=== PATIENT | female | born 2000 | race Two or more races ===

== ENCOUNTER 2024-02-21 10:08 | Emergency (ER) | payer OTHER, SELFPAY ==
[2024-02-21 10:37] VITALS: BP 115/70; PULSE 51; RESP 14; TEMP 36.8; O2SAT 100; BMI 33.8
[2024-02-21 14:01] VITALS: BP 127/46; PULSE 78; RESP 16; TEMP 36.9; O2SAT 100
--- NOTE | 2024-02-21 14:01 | ED.GENADULT ---
HPI - General Adult General Chief complaint: Abdominal Pain Stated complaint: migraine sweating not sleeping Source: patient Mode of arrival: ambulatory Limitations: no limitations History of Present Illness ED Provider: Liya Barrientos PA-C HPI narrative: Patient is a 23 year old assigned female at with a history of chronic abdominal pain and IBS presenting to the emergency department today with continued abdominal pain. Patient states that she has been having abdominal pain for months that isn't getting better as well as diarrhea. Patient states that every time her appointment with a GI specialist would get close, she'd cancel it because she was feeling better. Patient denies any dizziness, lightheadedness, nausea, vomiting, fever, chills, blurry vision, double vision, loss of vision, chest pain, difficulty breathing, shortness of breath, back pain, night sweats, pain with urination, increased urinary frequency, increased urinary urgency, blood in her urine or stool, syncope or a near syncopal episode, recent trauma or falls, bowel incontinence, bladder incontinence, or any other complaints at this time. Onset (ago): month(s) Location: abdomen Radiation: non-radiation Severity: mild Severity scale (1-10): 4 Quality: aching Pain Consistency: constant Relieving factors: none Exacerbating factors: none Associated symptoms: other (diarrhea) Treatments prior to arrival: none Related Data Allergies Allergy/AdvReac Type Severity Reaction Status Date / Time No Known Allergies Allergy Verified 02/21/24 10:40 Review of Systems Constitutional: Constitutional: Reports no additional constitutional complaints, Denies chills, Denies fever(s) and Denies night sweats Eyes: Eyes: Reports no additional eye complaints, Denies blurry vision, Denies change in vision, Denies diplopia, Denies eye discharge, Denies loss of vision and Denies eye pain ENT: Denies dizziness Cardiovascular: Cardiovascular: Reports no additional cardiovascular complaints, Denies chest pain, Denies lightheadedness, Denies Loss of Consciousness and Denies dyspnea Respiratory: Respiratory: Reports no additional respiratory complaints and Denies dyspnea Gastrointestinal: Gastrointestinal: Reports no additional gastrointestinal complaints, Reports abdominal pain, Denies melena, Denies hematochezia, Denies change in bowel habits, Denies change in stool character and Reports diarrhea Genitourinary: Genitourinary: Denies hematuria, Denies urinary frequency, Denies dysuria, Denies urinary incontinence, Denies urinary hesitancy and Denies urinary urgency Musculoskeletal: Musculoskeletal: Reports no additional musculoskeletal complaints, Denies numbness and Denies tingling Neurologic: Denies dizziness, Denies loss of vision, Denies numbness and Denies tingling Psychiatric: Psychiatric: Reports no additional psychiatric complaints Endocrine: Endocrine: Reports no additional endocrine complaints Hematologic/Lymphatic: Hematologic/Lymphatic: Reports no additional hematologic/lymphatic complaints Allergic/Immunologic: Allergic/Immunologic: Reports no additional allergic/immunologic complaints [facility] Past Medical History Attestation statement: The following information was validated with the patient. Source: old records reviewed and nursing notes reviewed Social History Social History Advance Directives: No Do you have a plan to hurt others: No Plan Physical Exam ED Vital Signs: Vital Signs - 24 hr 02/21/24 10:37 Temperature 98.3 F Pulse Rate 51 Respiratory Rate 14 Blood Pressure 115/70 Pulse Oximetry 100 Oxygen Delivery Method Room Air BMI result Body Mass Index 33.8 Const General: cooperative, no acute distress, alert and awake Nutritional Appearance: well nourished Orientation/consciousness: patient oriented x3 Limitations: no limitations HENMT Head: Yes normal to inspection and Yes atraumatic Ears: hearing grossly normal bilaterally and external ears normal General nose exam: Normal external nose present, no nasal discharge noted and no epistaxis Face and sinus: Yes normal facial exam, No abrasion and No laceration Mouth: Normal oral and palatal mucosa present, no drooling and no muffled voice Eyes General: appearance normal, both eyes and all related structures Periorbital: periorbital findings normal Eyelids: Yes eyelids normal Conjunctivae: conjunctivae normal Pupils: Equal, round and reactive pupils present EOM: EOMs intact bilaterally Neck Neck: Yes normal visual inspection, Yes full ROM and Yes no lymphadenopathy Chest Chest palpation & inspection: normal inspection of the chest Resp Effort & Inspection: normal respiratory effort and able to speak in complete sentences GI Inspection: Yes normal to inspection Neuro General: patient oriented x3 and moves all extremities Cranial nerves: Yes Equal, round and reactive pupils present Cognition (Neuro): normal cognition Extrem General: Yes normal to inspection, Yes full ROM and Yes capillary refill normal Psych Appearance: grossly normal Mental Status: mental status grossly normal Affect: normal affect Attitude: cooperative Thought process: Normal thought process present Thought content: Normal thought content present Insight: Good insight present (Psych) Course Course Course Narrative: RME performed by Liya Barrientos PA-C. Patient is a 23 year old assigned female at presenting to the emergency department with abdominal pain. Patient states she has been having abdominal pain for months but lately it has been worse. Detailed physical exam and review of systems are deferred to the primary care sales representative. Labs and swabs ordered. Patient placed back in the waiting room pending room availability and results. Medical Decision Making Medical Decision Making MDM Narrative: Patient is a 23 year old assigned female at with a history of chronic abdominal pain and diarrhea presenting to the emergency department today with abdominal pain and diarrhea. Patient's limited physical exam performed in triage was unremarkable. Patient left the department without completing treatment. Patient left the department before myself or any of the other emergency department clinicians could explain to or review with the patient; physical exam findings, test results or lack there of, need or lack there of for additional testing, need or lack there of for a procedure to be performed, need or lack there of for hospital admission / transfer, need or lack there of for prescription medication, treatment options, or a treatment plan. Differential Diagnosis Differential Diagnoses: The differential diagnosis associated with the presentation includes Abdominal pain Acute on chronic abdominal pain IBS flare Diarrhea Gastroenteritis Admission/Observation Consideration of admission/observation: Escalation of care including admission/observation considered Patient would have been admitted to the hospital had she completed her work up and it had any findings where hospital admission was appropriate, her clinical presentation warranted hospital admission, had myself or any other emergency winding department supervisor had the ability to discuss need or lack there of for hospital admission, and the patient hadn't left the department without completing treatment. Tests considered The following testing was considered but not selected: A CT of the abdomen/pelvis was considered however, the patient left before completing treatment. Discharge Plan Discharge Clinical Impression: Abdominal pain, Diarrhea Patient Disposition: Left W/O Completing Treatment Discharge Date/Time: 02/21/24 16:26
--- NOTE | 2024-02-21 16:25 | PC.NURSE ---
Pt refused lab work- stating I don't want to stay all day
== END 2024-02-21 16:26 | disposition left against medical advice (07) ==
PROVIDERS: Emergency Provider Emergency Medicine
DX: R10.9 Unspecified abdominal pain (principal); R19.7 Diarrhea, unspecified; K58.9 Irritable bowel syndrome, unspecified
CPT/HCPCS: 99281

== ENCOUNTER 2024-08-03 09:59 | Emergency (ER) | payer OTHER, SELFPAY ==
[2024-08-03 10:52] VITALS: BP 132/60; PULSE 98; RESP 20; TEMP 36; O2SAT 100; BMI 36.1
--- NOTE | 2024-08-03 11:07 | ED_ITS ---
HPI - Abdominal Pain General Chief Complaint: Abdominal Pain Stated Complaint: abd pain Related Data Allergies Allergy/AdvReac Type Severity Reaction Status Date / Time No Known Allergies Allergy Verified 08/03/24 10:54 [facility] Social History Social History Advance Directives: No Advance Directives Information Provided: No Do you have a plan to hurt others: No Plan Physical Exam ED Vital Signs: Vital Signs - 24 hr 08/03/24 10:52 Temperature 96.8 F Pulse Rate 98 Respiratory Rate 20 Blood Pressure 132/60 Pulse Oximetry 100 Oxygen Delivery Method Room Air BMI result Body Mass Index 36.1 Course Course Course Narrative: This is a rapid medical exam performed by Arabella Ni PA-C. The patient is a 24-year-old female with a history of obesity who presents with the abdominal pain times 2-3 days. Associated nausea vomiting diarrhea. On exam, the patient's abdomen is soft, nondistended, obese, nontender no guarding. She is actively vomiting. She states her son is sick with same symptoms. This is likely viral gastro. We will screen basic labs. The patient is hemodynamically stable and can return to the waiting room pending her full medical assessment. Medical Decision Making Lab Data 08/03/24 11:19 08/03/24 11:19 Labs: Lab Results 08/03/24 Range/Units 11:19 WBC 8.0 (4.8-10.8) X10*3/uL RBC 5.19 (4.20-5.50) X10*6/uL Hgb 14.7 (12.0-16.0) g/dl Hct 43.8 (37.0-47.0) % MCV 84.4 (80.0-98.0) fL MCH 28.3 (27.0-33.0) pg MCHC 33.6 (31.0-35.0) g/dl RDW 12.2 (11.0-16.0) % Plt Count 211 (160-400) X10*3/uL MPV 11.1 (9.4-12.3) fL Immature Gran % (Auto) 0.4 (0.0-0.4) % Neut % (Auto) 82.9 H (45-73) % Lymph % (Auto) 9.4 L (20-40) % [place] % (Auto) 6.5 (2-11) % Eos % (Auto) 0.4 (0-4) % Baso % (Auto) 0.4 (0-2) % Lymph # (Auto) 0.8 L (1.2-4.9) X10*3/uL [place] # (Auto) 0.5 (0.1-1.2) X10*3/uL Eos # (Auto) 0.0 (0.0-0.4) X10*3/uL Baso # (Auto) 0.0 (0.0-0.2) X10*3/uL Abs Immat Gran (auto) 0.03 (0.00-0.03) X10*3/uL Absolute Neuts (auto) 6.6 (2.0-8.3) x10*3/uL Absolute Nucleated RBC 0.000 (0.0-0.012) X10*3/uL Nucleated RBC % (auto) 0.0 (0.0-0.2) /100WBC Sodium 140 (135-145) mmol/L Potassium 3.8 (3.3-5.1) mmol/L Chloride 110 H (96-108) mmol/L Carbon Dioxide 22 (22-29) mmol/L Anion Gap 12 (12-20) BUN 6 L (9-16) mg/dL Creatinine 0.78 (0.5-1.4) mg/dL Estim Creat Clear Calc 114.7 Estimated GFR > 60 Random Glucose 118 H (60-115) mg/dL Calcium 9.6 (8.4-10.2) mg/dL Magnesium 1.9 (1.6-2.6) mg/dL Total Bilirubin 0.6 (0.0-1.0) mg/dL AST 15 (5-31) U/L ALT 13 (0-31) U/L Alkaline Phosphatase 77 (39-117) U/L Total Protein 8.7 H (6.5-8.0) g/dL Albumin 4.4 (3.5-5.0) g/dL Lipase 33 (8-78) U/L Beta HCG, Quant < 2 mIU/mL Medications Administered Discontinued Medications Generic Name Dose Route Start Last Admin Trade Name Freq PRN Reason Stop Dose Admin Ondansetron HCl 4 mg 12/12/24 11:08 08/03/24 11:12 Ondansetron Odt 4 Mg Tab.Rapdis TRANSLINGU 08/03/24 11:09 4 mg ONCE ONE Administration Discharge Plan Discharge Clinical Impression: Abdominal pain Patient Disposition: Left W/O Completing Treatment Discharge Date/Time: 08/03/24 13:10
[2024-08-03] MEDS: Ondansetron ODT 4 MG TAB.RAPDIS TRANSLINGU (11:12)
[2024-08-03 11:23] LABS: MANUAL DIFF FLAG NO
[2024-08-03 11:24] LABS: Basophils Percent Auto 0.4 % (0-2); Eosinophils Percent Auto 0.4 % (0-4); Hematocrit 43.8 % (37.0-47.0); Hemoglobin 14.7 g/dl (12.0-16.0); Imm Gran Abs Auto 0.03 X10*3/uL (0.00-0.03); Imm Gran Pct Auto 0.4 % (0.0-0.4); Lymphocytes Absolute Auto 0.8 X10*3/uL (1.2-4.9); Lymphocytes Percent Auto 9.4 % (20-40); Mean Corpuscular HGB Conc 33.6 g/dl (31.0-35.0); Mean Corpuscular Hemoglobin 28.3 pg (27.0-33.0); Mean Corpuscular Volume 84.4 fL (80.0-98.0); Mean Platelet Volume 11.1 fL (9.4-12.3); Monocytes Absolute Auto 0.5 X10*3/uL (0.1-1.2); Monocytes Percent Auto 6.5 % (2-11); Neutrophils Absolute Auto 6.6 x10*3/uL (2.0-8.3); Neutrophils Percent Auto 82.9 % (45-73); Platelet Count 211 X10*3/uL (160-400); Red Blood Count 5.19 X10*6/uL (4.20-5.50); Red Cell Distribution Width 12.2 % (11.0-16.0)
[2024-08-03 11:50] LABS: Alanine Aminotransferase 13 U/L (0-31); Albumin Level 4.4 g/dL (3.5-5.0); Alkaline Phosphatase 77 U/L (39-117); Anion Gap 12 (12-20); Aspartate Amino Transferase 15 U/L (5-31); Bilirubin Total 0.6 mg/dL (0.0-1.0); Blood Urea Nitrogen 6 mg/dL (9-16); Calcium 9.6 mg/dL (8.4-10.2); Carbon Dioxide 22 mmol/L (22-29); Chloride 110 mmol/L (96-108); Creatinine Clr Calc Pharmacy 114.7; Estimated Glomerular Filt Rate > 60; Glucose Random 118 mg/dL (60-115); Lipase 33 U/L (8-78); Magnesium 1.9 mg/dL (1.6-2.6); Potassium 3.8 mmol/L (3.3-5.1); Sodium 140 mmol/L (135-145); Total Protein 8.7 g/dL (6.5-8.0)
[2024-08-03 11:54] LABS: HCG Quantitative < 2 mIU/mL
== END 2024-08-03 13:10 | disposition left against medical advice (07) ==
PROVIDERS: Physician Assistant Medical; Emergency Provider Student in an Organized Health Care Education/Training Program
DX: R10.9 Unspecified abdominal pain (principal)
CPT/HCPCS: 36415; 80053; 83690; 83735; 84702; 85025; 99281; 99283